=== PATIENT | female | born 1965 | race Hispanic/Latino ===

== ENCOUNTER → 2019-02-01 | Day surgery (SDC) | payer BC ==
[~2019-02-01] MED LIST: B-12 PO; CALCIUM PO; FENTANYL CITRATE/PF 100MCG/2 ML INJ ONE; HYOSCYAMINE 0.125 MG TAB ONE; KETAMINE HCL INJ 50 MG/ML 10 ML VIAL ONE; MIDAZOLAM HCL 2 MG/2 ML VIAL ONE; MULTIVITAMINS PO; PROPOFOL IV EMULSION 10 MG/ML 50 ML VIAL ONE; VITAMIN D PO
--- OUTSIDE RECORDS SUMMARY | 2019-02-01 12:14 | XMS REPORT ---
Author Author [facility] Address Unknown Phone Unavailable Care Team Providers Care Cleaning Porter Name Role Phone Unavailable Unavailable Payers Payer Name Policy Type Policy Number Effective Date Expiration Date Problems This patient has no known problems. Allergies, Adverse Reactions, Alerts This patient has no known allergies or adverse reactions. Medications This patient has no known medications.
--- OUTSIDE RECORDS SUMMARY | 2019-02-01 12:14 | XMS REPORT | Clinical Summary ---
Author Author [facility] Address Unknown Phone Unavailable Care Team Providers Care Spool Sorter Name Role Phone Asked, No Pcp PCP Unavailable Allergies Not on File Medications Not on file Active Problems Not on file Encounters Care Team Description Date Type Specialty Kiera Cao MD Hooper, [place], MA Wellness examination (Primary Dx) 03/13/2018 [facility] after 01/31/2018 Immunizations Name Administration Dates Next Due PPD Test 03/13/2018, 01/17/2017, 03/01/2016 Social History Date Tobacco Use Types Packs/Day Years Used Never Assessed Sex Assigned at Date Recorded Not on file Industry Job Start Date Occupation Not on file Not on file Not on file Travel End Travel History Travel Start No recent travel history available. Last Filed Vital Signs Not on file Plan of Treatment Health Maintenance Due Date Last Done Comments CERVICAL CANCER SCREENING 1986 BREAST CANCER SCREENING 2015 COLONOSCOPY SCREENING 2015 SHINGLES VACCINES (#1) 2015 INFLUENZA VACCINE 12/12/2018 Procedures Comments Procedure Name Priority Date/Time Associated Diagnosis TB SKIN TEST Routine 03/13/2018 Wellness examination 10:55 AM CDT after 01/31/2018 Results * TB Skin Test (03/13/2018 10:55 AM CDT) PPD induration Negative 48-72 hrs Induration 0 mm Specimen Other after 01/31/2018 Advance Directives For more information, please contact: [phone] Patient Event Manager Explanation Type Date Recorded Advance Directives, Living Will and Medical Power of Measurement Supervisor
[2019-02-01 16:15] VITALS: BP 131/79
--- NOTE | 2019-02-02 00:07 | Operative Report ---
DATE OF PROCEDURE: 02/01/2019 SURGEON: Danish Hutchinson MD PROCEDURE: Colonoscopy. INDICATIONS FOR COLONOSCOPY: Surveillance colonoscopy, personal history of polyps. MEDICATIONS: The patient was done under MAC. Please see anesthesiologist's note. PROCEDURE IN DETAIL: With the patient in left lateral decubitus position, a flexible fiberoptic Olympus colonoscope was inserted into the rectum with ease and advanced all the way to the cecum. The scope was then withdrawn slowly. Mucosa overlying the cecum, ascending colon, transverse colon, descending colon appeared to be within normal limits. Diverticular disease was noted to involve the sigmoid colon. The rectum appeared to be within normal limits. The scope was then retroflexed into the distal rectum and small internal hemorrhoids were noted, none of which was actively bleeding. The scope was then straightened out. It was subsequently withdrawn. The patient tolerated the procedure well. IMPRESSION: 1. Diverticulosis, sigmoid colon. 2. Internal hemorrhoids, none actively bleeding. PLAN: Initiate high-fiber, low-fat diet. Initiate high-fiber supplement. The patient might benefit from a followup colonoscopy in 5 years. Danish Hutchinson MD [facility] [place] /[id number] cc: Kyle Tucker MD
== END | disposition home or self-care (01) ==
LOC: OR 11:50
PROVIDERS: ATTEND Internal Medicine Gastroenterology
DX: Z09 Encounter for follow-up examination after completed treatment for conditions other than malignant neoplasm (principal); Z86.010 Personal history of colon polyps; K57.30 Diverticulosis of large intestine without perforation or abscess without bleeding; K64.8 Other hemorrhoids; R03.0 Elevated blood-pressure reading, without diagnosis of hypertension; Z68.41 Body mass index [BMI] 40.0-44.9, adult; Z85.3 Personal history of malignant neoplasm of breast
CPT/HCPCS: 45378; J2250; J2704; J3010